=== PATIENT | male | born 1965 | race American Indian/Alaskan Native ===

== ENCOUNTER 2020-02-20 17:19 | Emergency (ER) | payer BC ==
--- NOTE | 2020-02-20 18:10 | Emergency Department Report ---
Blank Doc - Documentation Documentation: 55-year-old male that presents with generlized weakness, chest pains, and bila tearl leg swelling. This initial assessment/diagnostic orders/clinical plan/treatment(s) is/are subject to change based on patient's health status, clinical progression and re- assessment by fellow clinical providers in the ED. Further treatment and workup at subsequent clinical providers discretion. Patient/guardians urged not to elope from the ED as their condition may be serious if not clinically assessed and managed. Initial orders include: 1- Patient sent to MAIN ED for further evaluation and treatment 2- cardiac workup
[2020-02-20 18:42] LABS: Basophils % (Auto) 0.2 % (0.0-1.8); Eosinophils % (Auto) 0.2 % (0.0-4.3); Hematocrit 32.3 % (35.5-45.6); Hemoglobin 10.3 gm/dl (11.8-15.2); Lymphocytes # (Auto) 1.2 K/mm3 (1.2-5.4); Lymphocytes % (Auto) 7.5 % (13.4-35.0); Mean Corpuscular HGB Conc 32 % (32-34); Mean Corpuscular Volume 79 fl (84-94); Monocytes # (Auto) 1.6 K/mm3 (0.0-0.8); Monocytes % (Auto) 10.4 % (0.0-7.3); Platelet Count 773 K/mm3 (140-440); Red Blood Count 4.11 M/mm3 (3.65-5.03); Red Cell Distribution Width 18.6 % (13.2-15.2)
[2020-02-20 18:51] LABS: INR 1.2 (0.87-1.13)
[2020-02-20 18:52] LABS: Partial Thromboplastin Time 30.3 Sec. (24.2-36.6)
[2020-02-20 19:04] LABS: Albumin 2.4 g/dL (3.9-5); Calcium 9.6 mg/dL (8.4-10.2)
--- NOTE | 2020-02-20 21:40 | XRay Report ---
CHEST 2 VIEWS INDICATION / CLINICAL INFORMATION: MAIN. COMPARISON: None available. FINDINGS: SUPPORT DEVICES: None. HEART / MEDIASTINUM: Enlarged cardiac silhouette. LUNGS / PLEURA: No confluent infiltrates or pleural effusions. Linear atelectasis noted in the bilate ral midlung field. No pneumothorax. ADDITIONAL FINDINGS: No significant additional findings. IMPRESSION: 1. Linear atelectasis in the bilateral midlung field. 2. Enlarged cardiac silhouette. Signer Name: Noman Paiz MD Signed: 02/20/2020 9:36 PM Workstation Name: [id number]
--- NOTE | 2020-02-21 00:43 | Emergency Department Report ---
HPI - General Chief Complaint: Weakness Time Seen by Provider: 02/20/20 18:09 - HPI HPI: This is a 55-year-old male who presents to the emergency department from home with complaint of bilateral lower extremity pain, swelling and weakness that has been going on for the past week. This does cause the patient difficulty getting up from the seated position, standing, and ambulating. He has needed to use a walker recently, which he does not use on a regular basis. He denies any fever, chest pain, shortness of breath, headache, vision change, numbness or paresthesias. He has a past medical history of CHF, hypertension and what appears to be chronic kidney disease. The patient's primary care physician is a Dr. Ospina. He sees a oral therapist through [facility]. No recent travel or sick contacts at home. No known aggravating or alleviating factors. ED Past Medical Hx - Past Medical History Previous Medical History?: Yes Hx Hypertension: Yes Hx Congestive Heart Failure: Yes - Surgical History Past Surgical History?: No - Social History Smoking Status: Never Smoker Substance Use Type: None ED Review of Systems ROS: Stated complaint: EXTREMITY PAIN Other details as noted in HPI Comment: All other systems reviewed and negative Constitutional: weakness. denies: chills, fever Eyes: denies: eye pain, vision change ENT: denies: ear pain, throat pain Respiratory: denies: cough, shortness of breath Cardiovascular: edema. denies: chest pain Gastrointestinal: denies: abdominal pain, vomiting Genitourinary: denies: dysuria, discharge Musculoskeletal: joint swelling, arthralgia, myalgia Skin: denies: rash, lesions Neurological: denies: numbness, paresthesias Physical Exam - Physical Exam Vital Signs: Vital Signs 02/20/20 17:35 Temperature 98.0 F Pulse Rate 94 H Respiratory 18 Rate Blood Pressure 121/74 O2 Sat by Pulse 93 Oximetry Physical Exam: GENERAL: The patient is well-developed well-nourished. HENT: Normocephalic. Atraumatic. Patient has moist mucous membranes. EYES: Extraocular motions are intact. NECK: Supple. Trachea is midline. CHEST/LUNGS: Clear to auscultation. There is no respiratory distress noted. HEART/CARDIOVASCULAR: Regular. There is no tachycardia. ABDOMEN: Abdomen is soft, nontender. Patient has normal bowel sounds. SKIN: Skin is warm and dry. 1+ pitting edema to the bilateral lower extremities. NEURO: The patient is awake, alert, and oriented. The patient is cooperative. The patient has no focal neurologic deficits. Normal speech. MUSCULOSKELETAL: There is some mild reproducible tenderness to palpation to the distal bilateral lower extremities. There is no limitation range of motion. Palpable dorsalis pedis pulses bilaterally. ED Course Vital Signs 02/20/20 17:35 Temperature 98.0 F Pulse Rate 94 H Respiratory 18 Rate Blood Pressure 121/74 O2 Sat by Pulse 93 Oximetry - Reevaluation(s) Reevaluation #1: 02/21/20 04:23 Lab Results 02/20/20 02/20/20 02/20/20 Range/Units 18:13 18:13 18:13 WBC 15.8 H (4.5-11.0) K/mm3 RBC 4.11 (3.65-5.03) M/mm3 Hgb 10.3 L (11.8-15.2) gm/dl Hct 32.3 L (35.5-45.6) % MCV 79 L (84-94) fl MCH 25 L (28-32) pg MCHC 32 (32-34) % RDW 18.6 H (13.2-15.2) % Plt Count 773 H (140-440) K/mm3 Lymph % (Auto) 7.5 L (13.4-35.0) % [place] % (Auto) 10.4 H (0.0-7.3) % Eos % (Auto) 0.2 (0.0-4.3) % Baso % (Auto) 0.2 (0.0-1.8) % Lymph # (Auto) 1.2 (1.2-5.4) K/mm3 [place] # (Auto) 1.6 H (0.0-0.8) K/mm3 Eos # (Auto) 0.0 (0.0-0.4) K/mm3 Baso # (Auto) 0.0 (0.0-0.1) K/mm3 Seg Neutrophils % 81.7 H (40.0-70.0) % Seg Neutrophils # 12.9 H (1.8-7.7) K/mm3 PT 15.5 H (12.2-14.9) Sec. INR 1.20 H (0.87-1.13) APTT 30.3 (24.2-36.6) Sec. Sodium 133 L (137-145) mmol/L Potassium 5.0 (3.6-5.0) mmol/L Chloride 99.3 (98-107) mmol/L Carbon Dioxide 21 L (22-30) mmol/L Anion Gap 18 mmol/L BUN 63 H (9-20) mg/dL Creatinine 2.9 H (0.8-1.3) mg/dL Estimated GFR 23 ml/min BUN/Creatinine Ratio 22 % Glucose 91 (75-100) mg/dL Calcium 9.6 (8.4-10.2) mg/dL Total Bilirubin 1.30 H (0.1-1.2) mg/dL AST 27 (5-40) units/L ALT 19 (7-56) units/L Alkaline Phosphatase 215 H (35-129) units/L Troponin T 0.015 (0.00-0.029) ng/mL NT-Pro-B Natriuret Pep (0-900) pg/mL Total Protein 8.5 H (6.3-8.2) g/dL Albumin 2.4 L (3.9-5) g/dL Albumin/Globulin Ratio 0.4 % Urine Color (Yellow) Urine Turbidity (Clear) Urine pH (5.0-7.0) Ur Specific [place] (1.003-1.030) Urine Protein (Negative) mg/dL Urine Glucose (UA) (Negative) mg/dL Urine Ketones (Negative) mg/dL Urine Blood (Negative) Urine Nitrite (Negative) Urine Bilirubin (Negative) Urine Urobilinogen (<2.0) mg/dL Ur Leukocyte Esterase (Negative) Urine WBC (Auto) (0.0-6.0) /HPF Urine RBC (Auto) (0.0-6.0) /HPF U Epithel Cells (Auto) (0-13.0) /HPF Urine Bacteria (Auto) (Negative) /HPF Urine Mucus /HPF 02/20/20 02/20/20 02/20/20 Range/Units 18:13 20:33 Unknown WBC (4.5-11.0) K/mm3 RBC (3.65-5.03) M/mm3 Hgb (11.8-15.2) gm/dl Hct (35.5-45.6) % MCV (84-94) fl MCH (28-32) pg MCHC (32-34) % RDW (13.2-15.2) % Plt Count (140-440) K/mm3 Lymph % (Auto) (13.4-35.0) % [place] % (Auto) (0.0-7.3) % Eos % (Auto) (0.0-4.3) % Baso % (Auto) (0.0-1.8) % Lymph # (Auto) (1.2-5.4) K/mm3 [place] # (Auto) (0.0-0.8) K/mm3 Eos # (Auto) (0.0-0.4) K/mm3 Baso # (Auto) (0.0-0.1) K/mm3 Seg Neutrophils % (40.0-70.0) % Seg Neutrophils # (1.8-7.7) K/mm3 PT (12.2-14.9) Sec. INR (0.87-1.13) APTT (24.2-36.6) Sec. Sodium (137-145) mmol/L Potassium (3.6-5.0) mmol/L Chloride (98-107) mmol/L Carbon Dioxide (22-30) mmol/L Anion Gap mmol/L BUN (9-20) mg/dL Creatinine (0.8-1.3) mg/dL Estimated GFR ml/min BUN/Creatinine Ratio % Glucose (75-100) mg/dL Calcium (8.4-10.2) mg/dL Total Bilirubin (0.1-1.2) mg/dL AST (5-40) units/L ALT (7-56) units/L Alkaline Phosphatase (35-129) units/L Troponin T 0.018 (0.00-0.029) ng/mL NT-Pro-B Natriuret Pep 04135 H (0-900) pg/mL Total Protein (6.3-8.2) g/dL Albumin (3.9-5) g/dL Albumin/Globulin Ratio % Urine Color [place] (Yellow) Urine Turbidity Clear (Clear) Urine pH 5.0 (5.0-7.0) Ur Specific [place] 1.013 (1.003-1.030) Urine Protein 30 mg/dl (Negative) mg/dL Urine Glucose (UA) Neg (Negative) mg/dL Urine Ketones Neg (Negative) mg/dL Urine Blood Neg (Negative) Urine Nitrite Neg (Negative) Urine Bilirubin Neg (Negative) Urine Urobilinogen 4.0 (<2.0) mg/dL Ur Leukocyte Esterase Neg (Negative) Urine WBC (Auto) 1.0 (0.0-6.0) /HPF Urine RBC (Auto) 3.0 (0.0-6.0) /HPF U Epithel Cells (Auto) < 1.0 (0-13.0) /HPF Urine Bacteria (Auto) 1+ (Negative) /HPF Urine Mucus Few /HPF Reevaluation #2: 02/21/20 04:23 Vital Signs 02/20/20 02/21/20 02/21/20 17:35 00:36 00:41 Temperature 98.0 F Pulse Rate 94 H 89 Respiratory 18 16 18 Rate Blood Pressure 121/74 Blood Pressure 159/95 [Left] O2 Sat by Pulse 93 99 Oximetry 02/21/20 02/21/20 00:45 01:00 Temperature Pulse Rate 89 88 Respiratory 21 21 Rate Blood Pressure 154/93 153/90 Blood Pressure [Left] O2 Sat by Pulse 97 98 Oximetry ED Medical Decision Making - Lab Data Result diagrams: 02/20/20 18:13 02/20/20 18:13 - Radiology Data Radiology results: report reviewed, image reviewed interpreted by me: Chest x-ray shows some cardiomegaly. No pneumonia, pleural effusions, pneumothorax. CT head/brain wo con INDICATION / CLINICAL INFORMATION: Patient complains of weakness. TECHNIQUE: Axial CT imaging of the brain was obtained without contrast. Coronal and sagittal reformatted imaging obtained and reviewed. All CT scans at this location are performed using CT dose reduction for ALARA by means of automated exposure control. COMPARISON: None available. FINDINGS: No intracranial hemorrhage, mass, or midline shift noted. No extra-axial fluid collection or suggestion of acute territorial infarction. Ventricular system and basilar cisterns are unrem arkable. Mild cerebral and cerebellar atrophy noted. Visualized paranasal sinuses and mastoid air cells are well aerated and clear. No calvarial abnormality. IMPRESSION: 1. No acute intracranial abnormality. DUPLEX DOPPLER LOWER EXTREMITY VEINS, BILATERAL INDICATION: B/L LE pain and swelling. TECHNIQUE: Duplex doppler imaging was performed through the veins of both lower extremities using venous compression and other maneuvers. COMPARISON: None available. FINDINGS: Right Common Femoral vein: Negative. Right Superficial Femoral vein: Negative. Right Popliteal vein: Negative. Right Calf veins: Negative. Left Common Femoral vein: Negative. Left Superficial Femoral vein: Negative. Left Popliteal vein: Negative. Left Calf veins: Negative. Additional findings: None. IMPRESSION: 1. No sonographic evidence for DVT in either lower extremity. - Medical Decision Making This patient presents to the emergency department with complaint of bilateral lower extremity swelling and discomfort. He describes some weakness, but this is not consistent with any lateralizing or focal deficit and appears to be more secondary to the patient's swelling and pain. He has been using a walker for the past 2 weeks and has had to do so in the past for these same issues. On examination the patient has 1+ pitting edema to the bilateral lower extremities from the knees distally. He otherwise appears neurovascularly intact. No rash, erythema, lesions, bleeding or drainage. Patient's labs shows renal insufficiency with a creatinine of 2.9 and a GFR of 23. The patient does have a history of chronic kidney disease and was able to recall that his baseline creatinine is somewhere around 2.5. There is a mild leukocytosis of 15,000. The patient has an elevated proBNP level. However I believe this is secondary to his renal insufficiency and does not appear consistent with decompensated heart failure. The patient has no complaints of any chest pain, shortness of breath. Chest x-ray does not show any pleural effusions, pneumothorax, pneumonia, or any other acute process. He had a bilateral lower extremity venous Doppler ultrasound that was negative for any acute DVT. Patient was able to stand up and transfer without any instability. He says that he is able to complete all of his ADLs using his walker. He has good outpatient follow-up with primary care, cardiology and nephrology. His vital signs have been reassuring throughout his ED course including being afebrile. For these reasons the patient will be discharged home to follow-up with his primary care physician and specialist. He will return to the ER with any worsening of his symptoms or with any acute distress. Critical Care Time: No Critical care attestation.: If time is entered above; I have spent that time in minutes in the direct care of this critically ill patient, excluding procedure time. ED Disposition Clinical Impression: Swelling of both lower extremities, Lower extremity pain, bilateral CKD (chronic kidney disease) Qualifiers: Chronic kidney disease stage: unspecified stage Qualified Code(s): N18.9 - Chronic kidney disease, unspecified Hypertension Qualifiers: Hypertension type: essential hypertension Qualified Code(s): I10 - Essential (primary) hypertension Disposition: TO HOME OR SELFCARE Is pt being admited?: No Condition: Stable Instructions: Chronic Kidney Disease, Adult, Peripheral Edema, Hypertension, Adult, Hypertension (ED) Additional Instructions: Please follow-up with your primary care physician, oral therapist, and pretzel twisting machine operator, in the next few days. Take your home medications as prescribed. Return to the emergency department with any worsening of your symptoms, new or concerning symptoms not addressed during this current emergency department visit, or with any acute distress. Referrals: PCP, Your [Other] - 2-3 Days Director Food [employer] Beverage, Your [Other] - 2-3 Days Seedling Puller, Your [Other] - 2-3 Days Time of Disposition: 03:23
[2020-02-21 01:30] LABS: Bacteria,Urine 1+ /HPF (Negative); Bilirubin,Urine NEG (Negative); Blood,Urine NEG (Negative); Color,Urine Amber (Yellow); Mucus,Urine FEW /HPF
--- NOTE | 2020-02-21 01:44 | Cat Scan Report ---
CT head/brain wo con INDICATION / CLINICAL INFORMATION: Patient complains of weakness. TECHNIQUE: Axial CT imaging of the brain was obtained without contrast. Coronal and sagittal reformatted imaging obtained and reviewed. All CT scans at this location are performed using CT dose reduction for ALAR A by means of automated exposure control. COMPARISON: None available. FINDINGS: No intracranial hemorrhage, mass, or midline shift noted. No extra-axial fluid collection or suggesti on of acute territorial infarction. Ventricular system and basilar cisterns are unremarkable. Mild ce rebral and cerebellar atrophy noted. Visualized paranasal sinuses and mastoid air cells are well aerated and clear. No calvarial abnormali ty. IMPRESSION: 1. No acute intracranial abnormality. Signer Name: Erika Valentine MD Signed: 02/21/2020 1:39 AM Workstation Name: [id number]
[2020-02-21 03:58] VITALS: BP 153/90
--- NOTE | 2020-02-23 08:38 | Vascular Lab Report ---
DUPLEX DOPPLER LOWER EXTREMITY VEINS, BILATERAL INDICATION: B/L LE pain and swelling. TECHNIQUE: Duplex doppler imaging was performed through the veins of both lower extremities using venous paradise vahid and other maneuvers. COMPARISON: None available. FINDINGS: Right Common Femoral vein: Negative. Right Superficial Femoral vein: Negative. Right Popliteal vein: Negative. Right Calf veins: Negative. Left Common Femoral vein: Negative. Left Superficial Femoral vein: Negative. Left Popliteal vein: Negative. Left Calf veins: Negative. Additional findings: None. IMPRESSION: 1. No sonographic evidence for DVT in either lower extremity. Signer Name: Erika Valentine MD Signed: 02/21/2020 3:08 AM Workstation Name: [id number]
== END 2020-02-21 04:00 | disposition home or self-care (01) ==
LOC: ED 17:19
DX: I13.0 Hypertensive heart and chronic kidney disease with heart failure and stage 1 through stage 4 chronic kidney disease, or unspecified chronic kidney disease (principal); N18.9 Chronic kidney disease, unspecified; I50.9 Heart failure, unspecified; M79.89 Other specified soft tissue disorders; M79.604 Pain in right leg; M79.605 Pain in left leg
CPT/HCPCS: 36415; 70450; 71046; 80053; 81001; 83880; 84484; 85025; 85610; 85730; 93970